=== PATIENT | female | born 1970 | race Two or more races ===

== ENCOUNTER 2018-07-05 00:53 | Emergency (ER) | payer OTHER ==
[~2018-07-05] VITALS: Ht 165.1 cm; Wt 63.5 kg
[2018-07-05] MEDS ORDERED: ONDANSETRON HCL 4 MG/2 ML VIAL IV ONE (02:00)
[2018-07-05] MEDS ORDERED: NALBUPHINE HCL 10 MG/1ml INJECTION IV ONE (02:00)
[2018-07-05] MEDS ORDERED: KETOROLAC TROMETH 60MG/2ML VIAL IM ONE (02:30)
[2018-07-05] MEDS ORDERED: KETOROLAC TROMETH 30 MG/ML 1ML VIAL IV ONE (02:45)
[2018-07-05 03:38] VITALS: BP 125/78
== END 2018-07-05 05:06 | disposition home or self-care (01) ==
LOC: ER 00:59
DX: S63.502A Unspecified sprain of left wrist, initial encounter (principal); X50.1XXA Overexertion from prolonged static or awkward postures, initial encounter; Y93.89 Activity, other specified; Y92.89 Other specified places as the place of occurrence of the external cause; Y99.8 Other external cause status
CPT/HCPCS: 29125; 73110; 96374; 96375; 99284; J1885; J2300; J2405